=== PATIENT | female | born 1990 | race Caucasian/White ===

== ENCOUNTER → 2017-01-22 | Outpatient (CLI) | payer OTHER ==
[~2017-01-22] MED LIST: EFFSR75 PO; LAMO150T32 PO; LVQ750 PO; METH1CAP21 PO
[2017-01-22 12:37] LABS: CHOLESTEROL/HDL RATIO 2.7
== END | disposition home or self-care (01) ==
LOC: C.LABBFT 08:56
PROVIDERS: ATTEND Family Medicine
DX: Z13.1 Encounter for screening for diabetes mellitus (principal); Z13.220 Encounter for screening for lipoid disorders

== ENCOUNTER → 2017-02-19 | Outpatient (CLI) | payer OTHER | END | disposition home or self-care (01) | LOC: C.LABBFT 12:44 | PROVIDERS: ATTEND Family Medicine | DX: E22.1 Hyperprolactinemia (principal) ==

== ENCOUNTER → 2017-07-15 | Outpatient (CLI) | payer OTHER ==
[2017-07-15 12:44] LABS: BASO % 0.6 %; BASO ABS # 0.05 K/uL (0-0.2); COMPLETE YES; HEMATOCRIT 42.6 % (37-47); IG% 0.2 %; LYMPH % 26.9 %; LYMPH ABS # 2.43 K/uL (1.2-3.4); MEAN CELL VOLUME 95.3 fL (80-100); MEAN CORPUSCULAR HEMOGLOBIN 33.1 pg (25-34); MEAN CORPUSCULAR HGB CONC 34.7 g/dl (32-36); MONO % 9.6 %; NEUT % 60.7 %; PLATELET COUNT 282 K/uL (130-400); RED BLOOD COUNT 4.47 M/uL (4.2-5.4); WHITE BLOOD COUNT 9.04 K/uL (4.8-10.8)
[2017-07-18 19:31] LABS: METHYLMALONIC ACID 178 NMOL/L (87-318)
== END | disposition home or self-care (01) ==
LOC: C.LABBFT 07:39
PROVIDERS: ATTEND Nurse Practitioner Psychiatric/Mental Health
DX: F31.81 Bipolar II disorder (principal); Z79.899 Other long term (current) drug therapy; F41.3 Other mixed anxiety disorders